=== PATIENT | male | born 1990 | race Caucasian/White ===

== ENCOUNTER 2018-07-07 19:02 | Emergency (ER) | payer MEDICAID ==
[2018-07-07 19:10] VITALS: BP 110/55
--- NOTE | 2018-07-07 19:16 | EDPHY ---
H & P Stated Complaint: discharge from penis Source: Patient Exam Limitations: No limitations - Personal History Current Tetanus/Diphtheria Vaccine: Yes Current Tetanus Diphtheria and Acellular Pertussis (TDAP): Yes - Medical/Surgical History Hx Asthma: No Hx Chronic Respiratory Disease: No Hx Diabetes: No Hx Cardiac Disease: No Hx Renal Disease: No Hx Cirrhosis: No Hx Alcoholism: No Hx HIV/AIDS: No Hx Splenectomy or Spleen Trauma: No - Social History Smoking Status: Never smoked Time Seen by Provider: 07/07/18 19:15 HPI/ROS: HPI: This is a 28-year-old male who presents with Chief Complaint: Discharge from penis Location:penis Quality: Discharge Duration: Several days Signs and Symptoms: no fever, no nausea, no vomiting, no hematemesis, no blood in stool, no abdominal bloating, no diarrhea, no back pain, no urinary symptoms , no testicular/groin pain, no indigestion, no chest pain, no shortness of breath Timing: Acute, intermittent episodes Severity: [id number] Context: Patient is currently , and his is , presents with concerns of penile yellowish green discharge for the last several days. He denies any testicular groin pain, fever, rash, hematuria, burning with urination. Modifying Factors: None Comment: ROS: A comprehensive 10 system review of systems is otherwise negative aside from elements mentioned in the history of present illness. MEDICAL/SURGICAL/SOCIAL HISTORY: Medical history: Generally healthy. Does not take any regular medications. Surgical history: Denies Social history: Never smoked. Family history noncontributory. CONSTITUTIONAL: Polite and cooperative, adult white male, awake and alert, no obvious distress HEENT: Atraumatic and normocephalic Male : circumcised penis, bilateral descended testes, no testicular swelling, no testicular masses, yellowish penile discharge, no lesions, negative Prehn's sign. EXTREMITIES: 2/2 pulses, strength 5/5, no deformities, no clubbing, no cyanosis or edema. NEUROLOGICAL: no focal neuro deficits. GCS 15. SKIN: Warm and dry, no erythema. no rash. Good capillary refill. (Kelle Rodriguez) Constitutional: Initial Vital Signs Temperature (C) 36.6 C 07/07/18 19:08 Heart Rate 62 07/07/18 19:08 Respiratory Rate 16 07/07/18 19:08 Blood Pressure 110/55 L 07/07/18 19:08 O2 Sat (%) 98 07/07/18 19:08 O2 Delivery Mode Room Air Allergies/Adverse Reactions: No Known Allergies Allergy (Unverified 07/07/18 19:10) Medical Decision Making ED Course/Re-evaluation: Urine GC ordered. Patient prophylactically treated with IM Rocephin 250 mg and azithromycin p.o. 1 gram. No signs of Juanjo's gangrene/epididymitis/orchitis/testicular torsion. This patient was seen under the supervision of my secondary supervising physician. I evaluated care for this patient independently. Discussed this patient with Dr. Hodge. (Kelle Rodriguez) I did not see this patient while he was in the emergency department. However his care was discussed with the PA while the patient was in the department. I agree with treatment plan and management (Jadiel Hodge) Differential Diagnosis: Differential diagnosis includes but is not limited to epididymitis, orchitis, sexually transmitted infection. (Kelle Rodriguez) - Data Points Medications Given: Discontinued Medications Azithromycin (Zithromax) 1,000 mg PO EDNOW ONE PRN Reason: Protocol Stop: 07/07/18 19:31 Last Admin: 07/07/18 19:44 Dose: 1,000 mg Ceftriaxone Sodium (Rocephin Im Syringe) 250 mg IM EDNOW ONE PRN Reason: Protocol Stop: 07/07/18 19:30 Last Admin: 07/07/18 20:09 Dose: 250 mg Departure - Departure Disposition: Home, Routine, Self-Care Clinical Impression: Penile discharge, Concern about STD in male without diagnosis Condition: Good Instructions: Sexually Transmitted Diseases (ED) Additional Instructions: The emergency room will call and inform you if your test results are positive for gonorrhea and chlamydia. You have received prophylactic antibiotics to treat for gonorrhea and chlamydia in the emergency room today. Please refrain from sexual intercourse until antibiotics are completed and all sexual partners are treated. Return at once for any worsening symptoms or concerns. Referrals: [facility],. [Clinic] - Follow Up Only If Needed
[2018-07-07] MEDS ORDERED: AZITHROMYCIN 250 MG TAB PO ONE (19:30)
[2018-07-08 11:55] LABS: GC AMPLIFICATION GENPROBE NEGATIVE (NEGATIVE)
== END 2018-07-07 20:05 | disposition home or self-care (01) ==
DX: N48.9 Disorder of penis, unspecified (principal)
CPT/HCPCS: J0696